=== PATIENT | male | born 1965 | race Hispanic/Latino ===

== ENCOUNTER → 2025-06-01 | Outpatient (CLI) | payer OTHER ==
--- NOTE | 2025-06-01 14:18 | HMCIMG ---
EXAM: CT Maxillofacial without Intravenous Contrast. CLINICAL HISTORY: 59-year-old male with chronic sinusitis. TECHNIQUE: Axial computed tomography images of the face without intravenous contrast. Sagittal and coronal reformations performed. Dose reduction technique was used including one or more of the following: automated exposure control, adjustment of mA and kV according to patient size, and/or iterative reconstruction. CONTRAST: None. COMPARISON: None provided. FINDINGS: BONES: No acute fracture or focal osseous lesion. The mandible is intact. SOFT TISSUES: The soft tissues are unremarkable. SINUSES: Mucoperiosteal thickening of the left side mastoid air spaces is suggesting mild mastoiditis, correlate clinically. IMPRESSION: 1. Mucoperiosteal thickening of the left side mastoid air spaces, suggesting mild mastoiditis. Correlate clinically. 2. No acute fracture or focal osseous lesion. /[place]
== END | disposition home or self-care (01) ==
LOC: RAH 10:09
PROVIDERS: ATTEND Otolaryngology
DX: J32.8 Other chronic sinusitis (principal); J34.89 Other specified disorders of nose and nasal sinuses
CPT/HCPCS: 70486